=== PATIENT | male | born 1950 ===

== ENCOUNTER → 2017-12-15 | Day surgery (SDC) | payer BC ==
[2017-12-09 11:54] VITALS: Ht 177.8 cm; Wt 76.4 kg
[~2017-12-15] VITALS: Ht 177.8 cm; Wt 76.4 kg
[~2017-12-15] MED LIST: ASPI81TA28 PO; ENDOSCOPIC MARKER 5 ML SYR ONE; EpHEDrine SULFATE 50MG/5ML SYR ONE; LIDOCAINE HCL 2% 2 ML VIAL (20MG/ML) ONE; MIDAZOLAM HCL 1 MG/ML 2ML VIAL ONE; MULT-506 PO; OMEG10007 PO; PHENYLEPHRINE 100MCG/ML 5ML SYR ONE; PRLSR20 PO; PROPOFOL IV EMULSION 10 MG/ML 20 ML VIAL IV ONE; SODIUM CHLORIDE 0.9% 500ML 500 ML IV ONE
--- NOTE | 2017-12-15 09:38 | Endo History and Physical ---
History & Physical Date of Service: Dec 15, 2017. Chief Complaint: BLOOD IN STOOL Referring Physician: SAWYER PERALTA PA-C History of Present Illness Bleeding per rectum, Hx of Hemorrhoidal surgery. Never had colonoscopy. Past Surgical History Hx Cardiac Surgery: No Hx Internal Defibrillator: No Hx Pacemaker: No Hx Abdominal Surgery: No Hx of Implantable Prosthesis: No Hx Post-Op Nausea and Vomiting: No Hx Cancer Surgery: No Hx Thoracic Surgery: No Hx Orthopedic: No Hx Urinary Tract Surgery: Yes (UNDESCENDED TESTES) Family History None Social History Smoking Status: Former Smoker Hx Substance Use: No Hx Alcohol Use: Yes (OCCASIONAL) Allergies Coded Allergies: No Known Allergies (Verified , 12/15/17) Current Medications Reported Home Medications Medications Dose Route/Sig Max Daily Dose Days Date Category Multivitamin (Multivitamins) Tab 1 Tab PO DAILY 12/09/17 Reported Aspirin Ec (Aspirin) 81 Mg Tab 81 Mg PO DAILY 12/09/17 Reported Josephine-3 (Fish Oil) 1 Ea Cap 1 Cap PO BID 12/09/17 Reported Prilosec (Omeprazole) 20 Mg Capcr 20 Mg PO QAM 12/09/17 Reported Vital Signs Weight (Kilograms): 76.36 Height (Feet): 5 Height (Inches): 10 Date Time Temp Pulse Resp B/P (MAP) Pulse Ox O2 Delivery O2 Flow Rate FiO2 12/15/17 09:17 36.4 85 20 117/70 (86) 98 Room Air Physical Exam General Appearance: no apparent distress Respiratory/Chest: Respiratory effort: good air movement Cardiovascular: Heart Auscultation: RRR Abdomen: Inspection & Palpation: soft, non-distended Assessment and Plan Stable for colonoscopy.
--- NOTE | 2017-12-15 10:52 | Discharge Instructions ---
Endoscopy Patient Instructions Date / Procedure(s) Performed Dec 15, 2017. Colonoscopy Allergy Information Coded Allergies: No Known Allergies (Verified , 12/15/17) Discharge Date / Findings Dec 15, 2017. Two large pedunculated colon polyps, removed. Large hemorrhoids. Medication Instructions Stopped Medication(s): ASPIRIN 12/14/17 No NSAIDs Provider Instructions Activity Restrictions - No exercising or heavy lifting for 24 hours. - Do not drink alcohol the day of the procedure. - Do not drive a car or operate machinery until the day after the procedure. - Do not make any important decisions or sign important papers in 24 hours after the procedure. Following Day: - Return to full activity which may include returning to work/school. Diet Start your diet with liquids and light foods (jello, soup, juice, toast). Then eat your usual diet if not nauseated. Treatment For Common After Affects For mild abdominal pain, bloating, or excessive gas: - Rest - Eat lightly - Lie on right side Follow-Up Information Follow-up with SAWYER PERALTA PA-C as scheduled Anesthesia Information What You Should Know You have had a procedure that required some medicine to reduce anxiety and discomfort. This treatment is called moderate sedation. After receiving the treatment, you may be sleepy, but you will be able to breathe on your own. The effects of the treatment may last for several hours. Follow these instructions along with Activity/Diet recommendations noted above: * Do NOT do anything where dizziness or clumsiness would be dangerous. * Rest quietly at home today, then you can be up and about tomorrow. * Have a responsible person stay with you the rest of today. * You may have had an I.V. today. If so, you may take the dressing off later today. Recommendations Call your doctor if: * Trouble breathing * Continuous vomiting for more than 24 hours * Temperature above 101 degrees * Severe abdominal pain or bloating * Pain not relieved by pain medicine ordered * There is increased drainage or redness from any incision * A large amount of rectal bleeding greater than 2-3 tablespoons. (If you had a polyp/s removed or have hemorrhoids, a small amount of blood - from the rectum is to be expected.) * You have any unanswered questions or concerns. IN THE EVENT OF A SERIOUS EMERGENCY, GO TO THE NEAREST EMERGENCY ROOM Your discharge instructions were prepared by provider Marcia Darling. Patient Instructions Signature Page Ed Fernández Patient (or Guardian) Signature/Date: I have read and understand the instructions given to me by my caregivers. Caregiver/RN/Doctor Signature/Date: The above-named patient and/or guardian has received patient instructions on this date. + Original Patient Signature Page (only) stays with chart. Please make copy for patient.
--- NOTE | 2017-12-15 11:02 | GI REPORT ---
Procedure Date: 12/15/2017 9:27 AM Procedure: Colonoscopy Indications: Rectal bleeding Medicines: Monitored Anesthesia Care Complications: No immediate complications. Estimated Blood Loss: Estimated blood loss: none. Procedure: Pre-Anesthesia Assessment: - Prior to the procedure, a History and Physical was performed, and patient medications and allergies were reviewed. The patient is competent. The risks and benefits of the procedure and the sedation options and risks were discussed with the patient. All questions were answered and informed consent was obtained. Patient identification and proposed procedure were verified by the physician and the nurse in the procedure room. Mental Status Examination: alert and oriented. Airway Examination: normal oropharyngeal airway and neck mobility. Respiratory Examination: clear to auscultation. CV Examination: normal. ASA Grade Assessment: III - A patient with severe systemic disease. After reviewing the risks and benefits, the patient was deemed in satisfactory condition to undergo the procedure. The anesthesia plan was to use monitored anesthesia care (MAC). Immediately prior to administration of medications, the patient was re-assessed for adequacy to receive sedatives. The heart rate, respiratory rate, oxygen saturations, blood pressure, adequacy of pulmonary ventilation, and response to care were monitored throughout the procedure. The physical status of the patient was re-assessed after the procedure. After I obtained informed consent, the scope was passed under direct vision. Throughout the procedure, the patient's blood pressure, pulse, and oxygen saturations were monitored continuously. The scope was introduced through the anus and advanced to the terminal ileum. The colonoscopy was performed without difficulty. The patient tolerated the procedure well. The quality of the bowel preparation was good. The terminal ileum, ileocecal valve, appendiceal orifice, and rectum were photographed. Scope withdrawal time was 20 minutes. Findings: The perianal exam findings include non-thrombosed external hemorrhoids. The digital rectal exam was normal. The terminal ileum appeared normal. A 30 mm polyp was found in the descending colon. The polyp was pedunculated. An endoloop was maneuvered over the polyp stalk and closed at the mucosal attachment prior to removal in order to prevent bleeding. The polyp was removed with a hot snare. Resection and retrieval were complete. To prevent bleeding after the polypectomy, three hemostatic clips were successfully placed (MR conditional). There was no bleeding at the end of the procedure. Area was tattooed with an injection of 1 mL of Spot (carbon black). A 25 mm polyp was found in the sigmoid colon. The polyp was pedunculated. The polyp was removed with a hot snare. Resection and retrieval were complete. To prevent bleeding after the polypectomy, four hemostatic clips were successfully placed (MR conditional). There was no bleeding at the end of the procedure. Area was tattooed with an injection of 1 mL of Spot (carbon black). Multiple small and large-mouthed diverticula were found in the sigmoid colon. Non-bleeding external and internal hemorrhoids were found during retroflexion. The hemorrhoids were large. Impression: - Non-thrombosed external hemorrhoids found on perianal exam. - The examined portion of the ileum was normal. - One 30 mm polyp in the descending colon, Looped, removed with a hot snare. Resected and retrieved. Clips (MR conditional) were placed. Tattooed. - One 25 mm polyp in the sigmoid colon, removed with a hot snare. Resected and retrieved. Clips (MR conditional) were placed. Tattooed. - Diverticulosis in the sigmoid colon. - Non-bleeding external and internal hemorrhoids. Recommendation: - Discharge patient to home. - Full liquid diet today. - No ibuprofen, naproxen, or other non-steroidal anti-inflammatory drugs for 2 weeks after polyp removal. - Repeat colonoscopy in 6 months to review the polypectomy site. - Return to referring physician. Marcia Darling MD 12/15/2017 11:01:48 AM This report has been signed electronically. Note Initiated On: 12/15/2017 9:27 AM I attest to the content of the Intraoperative Record and orders documented therein, exceptions below
--- NOTE | 2017-12-15 11:06 | Anesthesiology Progress Note ---
Anesthesia Post Op Note Date & Time Dec 15, 2017 at 11:06 Vital Signs Pain Intensity: 0 Vital Signs Past 12 Hours Date Time Temp Pulse Resp B/P (MAP) Pulse Ox O2 Delivery O2 Flow Rate FiO2 12/15/17 11:01 81 16 94/56 (69) 98 Room Air 12/15/17 09:17 36.4 85 20 117/70 (86) 98 Room Air Notes Mental Status: alert / awake / arousable, participated in evaluation Pt Amnestic to Procedure: Yes Nausea / Vomiting: adequately controlled Pain: adequately controlled Airway Patency, RR, SpO2: stable & adequate BP & HR: stable & adequate Hydration State: stable & adequate Anesthetic Complications: no major complications apparent
[2017-12-15 11:30] VITALS: BP 112/71; PULSE 70; O2SAT 96
== END | disposition home or self-care (01) ==
LOC: C.GI 08:44
PROVIDERS: ATTEND Student in an Organized Health Care Education/Training Program
DX: K62.5 Hemorrhage of anus and rectum (principal); K64.4 Residual hemorrhoidal skin tags; D12.4 Benign neoplasm of descending colon; D12.5 Benign neoplasm of sigmoid colon; K57.30 Diverticulosis of large intestine without perforation or abscess without bleeding; K64.8 Other hemorrhoids; Z87.891 Personal history of nicotine dependence

== ENCOUNTER → 2018-01-09 | Day surgery (SDC) | payer BC ==
[2018-01-09] VITALS (7 sets, daily range): BP systolic 88–131; BP diastolic 49–85; PULSE 62–75; TEMP 36.7; O2SAT 97–100; Ht 177.8 cm; Wt 76.3 kg
[~2018-01-09] VITALS: Ht 177.8 cm; Wt 76.3 kg
[~2018-01-09] MED LIST changes: +ACETAMINOPHEN 325 MG TAB PO PRN; +ATROPINE SULFATE 0.1 MG/ML 5ML SYR IV PRN; +DC ALL ANTICOAGULANTS ONE; -ENDOSCOPIC MARKER 5 ML SYR ONE; -EpHEDrine SULFATE 50MG/5ML SYR ONE; +FENTANYL CITRATE INJ 50 MCG/1 ML 2 ML VIAL ONE; +LIDOCAINE HCL 1% 20 ML VIAL ONE; -LIDOCAINE HCL 2% 2 ML VIAL (20MG/ML) ONE; +ONDANSETRON INJ 2 MG/ML 2 ML VIAL IV PRN; -PHENYLEPHRINE 100MCG/ML 5ML SYR ONE; -PROPOFOL IV EMULSION 10 MG/ML 20 ML VIAL IV ONE; +SODIUM CHLORIDE 0.9% 1000ML 1,000 ML IV SCH; +SODIUM CHLORIDE 0.9% 1000ML 250 ML IV PRN; -SODIUM CHLORIDE 0.9% 500ML 500 ML IV ONE
--- NOTE | 2018-01-09 08:45 | History & Physical Bridge Note ---
H&P Re-Evaluation Bridge Note: I have examined the patient, reviewed the History & Physical and in the interval since the performance of the History & Physical I have noted the following changes of clinical significance: No changes noted
--- NOTE | 2018-01-09 08:47 | Pre Sedation Assessment ---
Pre Sedation Assessment General Date of Sedation: Jan 09, 2018. Vital Signs Past 12 Hours Date Time Temp Pulse Resp B/P (MAP) Pulse Ox O2 Delivery O2 Flow Rate FiO2 01/09/18 08:38 63 18 88/49 100 Nasal Cannula 4 01/09/18 08:33 71 18 98/58 100 Nasal Cannula 4 01/09/18 08:30 71 18 96/65 100 Nasal Cannula 4 01/09/18 08:25 71 18 125/85 100 Nasal Cannula 4 01/09/18 08:20 71 18 122/79 100 Nasal Cannula 4 01/09/18 08:09 36.7 75 16 131/79 (96) 98 Room Air Review Cardiovascular: regular rate, rhythm, no edema, no JVD, normal peripheral pulses, + systolic murmur, + gallop/S4 Lungs: chest non-tender, lungs clear, normal breath sounds, no respiratory distress, no accessory muscle use Pre-Sedation Airway Assessment Smoking Status: Former Smoker Hx of Sleep Apnea: No Short Thick Neck: No Thyro-mental Distance: > 3 Finger Breadths Oral Cavity: Dentures Mallampati Classification: Class II ASA Classification: Class III NPO Status Date of Last Intake of Fluids: Jan 08, 2018 Time of Last Intake of Fluids: 1999 Date of Last Intake of Solids: Jan 08, 2018 Time of Last Intake of Solids: 1999 Notes The planned sedation has been discussed with the patient. Informed Consent was obtained. I have identified the patient, determined the appropriateness of sedation and have assessed the patient immediately prior to the procedure. All medicine(s) and interventions are by my order.
--- NOTE | 2018-01-09 08:48 | Post Sedation Assessment ---
Post Sedation Assessment General Date of Sedation Jan 09, 2018. Vital Signs: Vital Signs Past 12 Hours Date Time Temp Pulse Resp B/P (MAP) Pulse Ox O2 Delivery O2 Flow Rate FiO2 01/09/18 08:38 63 18 88/49 100 Nasal Cannula 4 01/09/18 08:33 71 18 98/58 100 Nasal Cannula 4 01/09/18 08:30 71 18 96/65 100 Nasal Cannula 4 01/09/18 08:25 71 18 125/85 100 Nasal Cannula 4 01/09/18 08:20 71 18 122/79 100 Nasal Cannula 4 01/09/18 08:09 36.7 75 16 131/79 (96) 98 Room Air Post Procedure Recovery Score Activity: (2) Moves 4 extremities * Respiration: (2) Deep breath/cough Circulation: (2) +/-20% PreAnes Value Consciousness: (2) Fully Awake Oxygen Saturation: (2) > 92% On Room Air Discharge Sedation Level of Care: Fast Track Phase II Post Sedation Plan On clinical assessment, the patient appears to have tolerated the sedation without complications. Patient is recovering as anticipated. Patient will continue to be monitored by nursing and may be discharged when sedation discharge criteria are met per below protocol. Upon Completions of procedure and additional 15 minutes continue every 5 minute vital signs and the P.A.R. score; then discharge to a Phase I or Fast Track to Phase II per the following guidelines: * Discharge Patient to appropriate Phase II area if PAR is 8 or greater or return to pre- procedure baseline. The post - procedure orders will be as directed. * If PAR score is less than 8 or not return to pre-procedure baseline then patient will follow Phase I monitoring till PAR is reached for Phase II. The Phase I may be done in procedure room or may call to secure a Phase I area. * If naloxone or flumazenil are used for reversal, hold in Phase I for an additional 60 -120 minutes before discharge to Phase II. Please call the Sedation Physician to re-evaluate and complete post-note for discharge to Phase II area. Do NOT discharge from procedure sedation or Phase 1 until post- sedation evaluation note is complete by procedure /sedation MD Sedation Discharge Instructions to be given to the patient at discharge to home.
--- NOTE | 2018-01-09 08:50 | Procedure Note ---
Procedure Note Date of Service Jan 09, 2018. Procedure Note Informed consent obtained pt prepped conscious sedation provided with a total of 3mg of Versed and 50mcg of Fentanyl NICOLAS performed functionally bicuspid aortic valve, otherwise, unremarkable pt tolerated well start time: 819 stop time: 839 no complications Plan: for diagnostic cardiac cath will then d/c to home for planned outpatient CT surgery eval for AVR
--- NOTE | 2018-01-09 08:51 | [facility] Post Operative Brief Note ---
Immediate Operative Summary Operative Date Jan 09, 2018. 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
--- NOTE | 2018-01-09 09:22 | Pre Sedation Assessment ---
Pre Sedation Assessment General Date of Sedation: Jan 09, 2018. Vital Signs Past 12 Hours Date Time Temp Pulse Resp B/P (MAP) Pulse Ox O2 Delivery O2 Flow Rate FiO2 01/09/18 09:10 72 16 108/70 (83) 96 Room Air 01/09/18 08:55 75 16 104/75 (85) 94 Room Air 01/09/18 08:40 77 16 102/70 (81) 94 Room Air 01/09/18 08:38 63 18 88/49 100 Nasal Cannula 4 01/09/18 08:33 71 18 98/58 100 Nasal Cannula 4 01/09/18 08:30 71 18 96/65 100 Nasal Cannula 4 01/09/18 08:25 71 18 125/85 100 Nasal Cannula 4 01/09/18 08:20 71 18 122/79 100 Nasal Cannula 4 01/09/18 08:09 36.7 75 16 131/79 (96) 98 Room Air Review Cardiovascular: regular rate, rhythm, no edema, no JVD, normal peripheral pulses, + systolic murmur, + gallop/S4 Lungs: chest non-tender, lungs clear, normal breath sounds, no respiratory distress, no accessory muscle use Pre-Sedation Airway Assessment Smoking Status: Former Smoker Hx of Sleep Apnea: No Hx of difficult intubation: No Short Thick Neck: No Thyro-mental Distance: > 3 Finger Breadths Oral Cavity: Dentures Mallampati Classification: Class II ASA Classification: Class II NPO Status Date of Last Intake of Fluids: Jan 08, 2018 Time of Last Intake of Fluids: 1999 Date of Last Intake of Solids: Jan 08, 2018 Time of Last Intake of Solids: 1999 Procedure Planning Contraindications for Sedation: None Current Medications Reviewed: Yes Notes The planned sedation has been discussed with the patient. Informed Consent was obtained. I have identified the patient, determined the appropriateness of sedation and have assessed the patient immediately prior to the procedure. All medicine(s) and interventions are by my order.
--- NOTE | 2018-01-09 10:42 | Post Sedation Assessment ---
Post Sedation Assessment General Date of Sedation Jan 09, 2018. Vital Signs: Vital Signs Past 12 Hours Date Time Temp Pulse Resp B/P (MAP) Pulse Ox O2 Delivery O2 Flow Rate FiO2 01/09/18 09:10 72 16 108/70 (83) 96 Room Air 01/09/18 08:55 75 16 104/75 (85) 94 Room Air 01/09/18 08:40 77 16 102/70 (81) 94 Room Air 01/09/18 08:38 63 18 88/49 100 Nasal Cannula 4 01/09/18 08:33 71 18 98/58 100 Nasal Cannula 4 01/09/18 08:30 71 18 96/65 100 Nasal Cannula 4 01/09/18 08:25 71 18 125/85 100 Nasal Cannula 4 01/09/18 08:20 71 18 122/79 100 Nasal Cannula 4 01/09/18 08:09 36.7 75 16 131/79 (96) 98 Room Air Post Procedure Recovery Score Activity: (2) Moves 4 extremities * Respiration: (2) Deep breath/cough Circulation: (2) +/-20% PreAnes Value Consciousness: (2) Fully Awake Oxygen Saturation: (2) > 92% On Room Air Post Anesthesia Score: 10 Discharge Sedation Level of Care: Fast Track Phase II Post Sedation Plan On clinical assessment, the patient appears to have tolerated the sedation without complications. Patient is recovering as anticipated. Patient will continue to be monitored by nursing and may be discharged when sedation discharge criteria are met per below protocol. Upon Completions of procedure and additional 15 minutes continue every 5 minute vital signs and the P.A.R. score; then discharge to a Phase I or Fast Track to Phase II per the following guidelines: * Discharge Patient to appropriate Phase II area if PAR is 8 or greater or return to pre- procedure baseline. The post - procedure orders will be as directed. * If PAR score is less than 8 or not return to pre-procedure baseline then patient will follow Phase I monitoring till PAR is reached for Phase II. The Phase I may be done in procedure room or may call to secure a Phase I area. * If naloxone or flumazenil are used for reversal, hold in Phase I for an additional 60 -120 minutes before discharge to Phase II. Please call the Sedation Physician to re-evaluate and complete post-note for discharge to Phase II area. Do NOT discharge from procedure sedation or Phase 1 until post- sedation evaluation note is complete by procedure /sedation MD Sedation Discharge Instructions to be given to the patient at discharge to home.
--- NOTE | 2018-01-09 11:06 | Procedure Note ---
Cardiac Cath Report Procedure: 1. Right heart catheterization 2. Left heart catheterization 3. Coronary angiography 4. Left ventriculogram 5. Aortogram History: This is a 67-year-old male patient who is here to evaluate aortic stenosis. Procedure summary: After informed consent was obtained the patient was taken to the cardiac catheterization lab where he was prepped and draped in the usual manner for a transfemoral approach. A right arterial sheath was placed in the femoral artery without difficulty. There was some difficulty however, placing the right transvenous sheath and therefore the left side was utilized and the left transvenous sheath was successfully placed. A 7 Turkish Powers-Cherrie catheter was utilized for the right heart pressures and cardiac outputs. Preformed 5 Turkish diagnostic catheters were utilized for the coronary angiograms. A 5 Turkish pigtail catheter was utilized for the aortogram. A multipurpose catheter was utilized to cross the aortic valve and to perform a left ventriculogram. Following the procedure the arterial site was closed with an Damien device the patient was taken to the holding area of the Wire Rigger in stable condition. Hemodynamic data: Right atrial pressure 2 mmHg Right ventricular pressure 24/3 mmHg Pulmonary artery pressure 23/7 mmHg Pulmonary capillary wedge pressure 8 mmHg Left ventricular pressure 176/19 mmHg Cardiac output Tiburcio 4.3 L/min, thermal dilution 4.1 L/min Mean gradient across the aortic valve 29.92 mmHg Estimated aortic valve area 0.68-0.72 cm Left ventriculogram: The left ventricle is of normal size. There is akinesis of the inferior myocardium. The estimated left ventricular ejection fraction is 40%. The mitral valve is competent. Aortogram: The aortic root is of normal size. There is trace aortic insufficiency. Coronary angiography: Selective injections of the left coronary artery revealed the left main trunk to be patent. The LAD extends only to the apex of the heart. In the proximal and mid segment around the first septal web site developer there is at least a 50% narrowing. The remainder of the artery has diffuse nonobstructive disease. The left circumflex artery consists principally of a large lateral marginal branch that bifurcates. The left circumflex artery has diffuse nonobstructive disease. Selective injections of the right coronary artery revealed to be occluded proximally. The distal right coronary artery is supplied with a rich bed of full collaterals from the left coronary artery. Summary: The patient has severe aortic stenosis. He has an ischemic cardiomyopathy with an estimated left ventricular ejection fraction of around 40 %. 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 There is an approximate 50% stenosis of the proximal LAD. The left circumflex artery is patent. Recommendations: The patient should be evaluated by cardiothoracic surgery for aortic valve replacement and coronary artery bypass.
--- NOTE | 2018-01-09 11:09 | Cardiac Catheterization ---
Procedure Note Procedure Date Jan 09, 2018. Pre-Procedure Diagnosis Valvular Disease AUC Score 9 Post-Procedure Diagnosis Severe CAD Procedure(s) Performed Coronary Angiography, Left Heart Cath, Right Heart Cath, LV Angiography, Aortography Transcript Evaluator Dr. 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 ACC Data Cardiac Status Clinical evaluation leading to the procedure CAD Presntation: No Sxs, no angina Anginal Classification: No symptoms Heart Failure: No Cardiogenic Shock w/in 24Hrs: No Cardiac Arrest w/in 24Hrs: No Imaging studies past 6 months: Yes Stress studies past 6 months: No Coronary Anatomy Dominant: Right Left Main (% Stenosis): Normal LAD (% Stenosis): Mid (50%) Circumflex (% Stenosis): Normal RCA (% Stenosis): Proximal (100%) Left Ventricular Angiography EF (%): 40% Wall Motion: Inferior (Akinetic) Diagnostic Status: Elective Closure Device Percutaneous Entry Location: Femoral Closure Device: Mynx Recommendations: valve replacement
--- NOTE | 2018-01-09 11:14 | Discharge Instructions ---
Discharge Instructions Procedure Procedure Date: Jan 09, 2018. Reason for Visit: Chest Pain,Aortic Stenosis *Dr Chao Doing*. Discharge Discharge Date: Jan 09, 2018. Discharge Diagnosis: Aortic stenosis Last Recorded Wt (Kilograms): 76.3 Anesthesia Post Anesthesia Instructions: If you have had General Anesthesia or IV Sedation: * Do not drive today. * Resume driving when surgeon permits. * Do not make important decisions or sign legal documents today. * Call surgeon for: 1. Temperature elevations greater than 101 degrees F. 2. Uncontrollable pain. 3. Excessive bleeding. 4. Persistent nausea and vomiting. 5. Medication intolerance (nausea, vomiting or rash). * For nausea and vomiting use only clear liquids such as: tea, soda, bouillon until nausea subsides, then gradually increase diet as tolerated. * If you have any concerns or questions, call your surgeon's office. If physician is unavailable and it is an emergency, call 911 or go to the nearest emergency room. Instructions Activity Recommendations: limitations Recommended Home Diet: resume previous diet Allergies: Coded Allergies: No Known Allergies (Verified , 12/15/17) Provider Instructions ACTIVITY RECOMMENDATIONS: It is common to feel weak and fatigue for a few days. * Do not drive or operate any motorized equipment for the next three days. * Limit stair usage (2 or 3 trips a day only) for the next three days. * Do not lift anything heavier than 10 pounds for the next three days. * Do not engage in vigorous exercise or any sports for the next five days. * You may shower the day after your procedure, but do not immerse the area for three days. Cleanse the site gently with soap and water. SPECIAL CARE INSTRUCTIONS: * You may replace the pressure dressing or band-aid the morning after the procedure. * After your procedure, it is normal to have a small bruise or small lump at the site. Examine your site daily for any change in the bruise or lump, redness, swelling, drainage or numbness. Notify your doctor if any change. BLEEDING: * If there is a small amount of bleeding at the site, lie down and apply firm pressure with a clean cloth for ten minutes. When the bleeding stops, lie quietly keeping the procedure limb straight for six hours. Notify your doctor as soon as possible. * If the bleeding does not stop after ten minutes or if there is a large amount of bleeding or spurting, call 911 immediately. Continue to lie down and hold firm pressure until help arrives. SKIN IRRITATION: * You may experience some redness and/or swelling in the area where radiation was administered. If any skin irritation occurs, please contact your family physician. FOLLOW UP VISIT: Keep any scheduled doctor appointments. Follow Up Follow-up with: Follow-up as scheduled with Dr. Carmelo Farnsworth Recommendations: Call your doctor if: * Temperature above 101 degrees * Pain not relieved by pain medicine ordered * There is increased drainage or redness from any incision * You have any unanswered questions or concerns. Your Doctors Instructions noted above were prepared by provider Jesus Alberto Chao. Patient Signature Section: Patient Instructions Signature Page Ed Fernández Patient (or Guardian) Signature/Date: I have read and understand the instructions given to me by my caregivers. Caregiver/RN/Doctor Signature/Date: The above-named patient and/or guardian has received patient instructions on this date. + Original Patient Signature Page (only) stays with chart. Please make copy for patient.
--- NOTE | 2018-01-09 16:10 | TEE ---
*NOTICE TO RECEIVING [employer] This information is strictly Confidential and protected under [place] law. [place] law prohibits you from making any further disclosure of this information unless further disclosure is expressly permitted by the written consent of the person to whom it pertains or is authorized by law. A general authorization for the release of medical or other information is not sufficient for this purpose. Hospital accepts no responsibility if the information is made available to any other person, INCLUDING THE PATIENT. Interpretation Summary * Name: GRAYSON LOVELACE Study Date: 01/09/2018 08:18 AM BP: 131/79 mmHg * Patient Location: [facility] HR: 66 * : 1950 (M/d/yyyy) Gender: Male Height: 70 in * Age: 67 yrs Ethnicity: DC Weight: 168 lb * Ordering Physician: Michael Rhodes DO * Referring Physician: Michael Rhodes DO * Performed By: Jill Hamilton RDCS * * Reason For Study: Chest pain, aortic stenosis * BSA: 1.9 m2 * -- Conclusions -- * Normal LV chamber size with midly reduced LV systolic function. * Heavily calcified, functionally bicuspid aortic valve. Severely reduced systolic excursion. Severe aortic stenosis without regurgitation. * Trace mitral regurgitation. * Mild left atrial enlargement. Procedure Details * The transesophageal portion of this study was personally supervised by the undersigned interpreting physician. * The study was performed in Cardiac Catheterization Lab. * Time out was conducted by the physician, nurse, and lamination technician with positive identification of patient and procedure. * Informed consent for Transesophageal Echocardiogram was obtained prior to the procedure. * An intravenous line was placed. A topical anesthetic agent was used for oropharangeal anesthesia. A bite block was inserted. * The patient's vital signs, including blood pressure, heart rate, pulse oximetry and cardiac rhythm were monitored throughout the procedure . * Fentanyl 50 mcg was administered for procedural sedation. * Midazolam 3 mg administered for sedation. * The posterior oropharynx was anesthetized using a topical anesthetic spray. A bite guard was inserted. * A multifrequency, multiplane transesopheageal echocardiographic endoscope was inserted and manipulated in the standard fashion to achieve multiplane views. * The transesophageal probe was passed without difficulty. * The usual views were obtained; basal, mid-esophageal, transgastric and aortic views. * The patient tolerated the procedure well without evidence of orophangeal or esophageal trauma. * Start time 0820 End time 0840 Probe #3 utilized for procedure. * A 2D transesophageal echocardiogram with color flow Doppler was performed. Left Ventricle * The left ventricle is normal in size. * Left ventricular systolic function is mildly reduced. Atria * The left atrium is mildly dilated. * Right atrial size is normal. * No ASD detected; PFO is not assessed. Mitral Valve * The mitral valve anatomy is normal. * There is no mitral valve stenosis. * There is trace mitral regurgitation. Tricuspid Valve * The tricuspid valve is normal in structure and function. Aortic Valve * Heavily calcified, functionally bicuspid aortic valve. Severely reduced systolic excursion. Severe aortic stenosis without regurgitation. Pulmonic Valve * The pulmonary valve is not well seen, but the Doppler examination is normal without significant regurgitation or stenosis. Great Vessels * The aortic root and proximal ascending aorta are normal sized.
== END | disposition home or self-care (01) ==
LOC: C.CPL 07:42
PROVIDERS: ATTEND Internal Medicine Cardiovascular Disease
DX: R07.9 Chest pain, unspecified (principal); I25.5 Ischemic cardiomyopathy; I35.0 Nonrheumatic aortic (valve) stenosis; R94.31 Abnormal electrocardiogram [ECG] [EKG]; E78.5 Hyperlipidemia, unspecified; K21.9 Gastro-esophageal reflux disease without esophagitis; Z79.82 Long term (current) use of aspirin